=== PATIENT | female | born 1980 ===

== ENCOUNTER → 2023-01-24 13:42 | Outpatient (CLI) | payer OTHER | END | disposition home or self-care (01) | LOC: LAB 13:42 | PROVIDERS: ATTEND Obstetrics & Gynecology | DX: D68.8 Other specified coagulation defects (principal) ==

== ENCOUNTER 2023-01-31 07:15 | Inpatient (IN) | payer OTHER ==
[~2023-01-31] VITALS: Ht 149.9 cm; Wt 59.0 kg
[2023-02-03] MEDS ORDERED: TOLTERODINE TART4 MG (09:12)
[2023-02-04] MEDS ORDERED: COLACE100 MG PO (11:51)
[2023-02-04] MEDS ORDERED: TRAM1TAB98 PO (11:51)
[2023-02-04] MEDS ORDERED: TANDEM PLUS CA1 EACH PO (11:52)
== END 2023-02-04 14:06 | disposition home or self-care (01) | DRG 743 ==
LOC: ADM 07:15 → O/R 02-03 05:25 → OB/GYN 02-03 05:25 → CIR.AMB 02-03 07:00 → EDSTATUS 02-03 07:15 → SURH 02-03 07:15 → CIR.AMB 02-03 07:15 → OB/GYN 02-03 11:50
PROVIDERS: ADMIT Obstetrics & Gynecology; ATTEND Obstetrics & Gynecology
PROC: 0USG7ZZ Reposition Vagina, Via Natural or Artificial Opening (ICD-10-PCS; 2023-02-03)
PROC: 0UT97ZZ Resection of Uterus, Via Natural or Artificial Opening (ICD-10-PCS; principal; 2023-02-03 07:00)
DX: D25.1 Intramural leiomyoma of uterus (principal); N80.03 Adenomyosis of the uterus; N72 Inflammatory disease of cervix uteri; N76.2 Acute vulvitis; D50.0 Iron deficiency anemia secondary to blood loss (chronic); N92.0 Excessive and frequent menstruation with regular cycle